=== PATIENT | female | born 1945 | race Caucasian/White ===

== ENCOUNTER 2019-04-28 09:54 | Day surgery (SDC) | payer MEDICARE, OTHER ==
[~2019-04-28 09:54] MED LIST: Lactated Ringers 1,000 ML IV SCH
[2019-04-28] MEDS ORDERED: DIPRIVAN 200 MG/20 ML IV ONE ×3 (12:00→12:54)
[2019-04-28] MEDS ORDERED: Lactated Ringers 1,000 ML IV ONE (12:34)
[2019-04-28 13:48] VITALS: PULSE 60
[2019-04-28 14:07] VITALS: BP 142/58; O2SAT 96
--- NOTE | 2019-04-29 09:09 | OP ---
SURGERY DATE: 04/28/19 SURGERY TIME: 1204 PREOPERATIVE DIAGNOSIS: 1. SURVEILLANCE, HISTORY OF POLYPS. POSTOPERATIVE DIAGNOSIS: 1. COLORECTAL POLYPS. 2. TORTUOUS COLON. 3. INTERNAL HEMORRHOID (MODERATE SIZE LEFT POSTERIOR) AND MINIMAL EXTERNAL HEMORRHOIDAL DISEASE. PROCEDURE: 1. Colonoscopy with hot forceps polypectomy X 2. SURGEON: Dr. Robyn Harrison. ANESTHESIA: MAC. ESTIMATED BLOOD LOSS: Minimal. SPECIMENS: 1. Sigmoid polyp. 2. Rectal polyp. COMPLICATIONS: None. PROCEDURE DETAILS: This is a 73 y/o female who presents for colonoscopy. She has a history of polyps in the past. Risks, benefits, and alternatives discussed with the patient in detail. H&P consent reviewed with her. Confirmed. She was then brought back to the endoscopy suite. Laid in the left lateral decubitus position. Complete time-out performed. First, a rectal exam was done. The colonoscope was then inserted. Gently advanced to the level of the cecum. The colon is quite tortuous as we have known from her prior procedure as well. We were able to navigate this very gently without any issue with some gentle abdominal pressure. With gentle abdominal pressure, we were able to advance the scope all the way to the level of the cecum. The ileocecal valve and appendiceal orifice were visualized. These were normal and then the scope was carefully withdrawn. The patient did have some thick liquid stool throughout her colon which were irrigated and suctioned. It was patchy. I was able to get a good view and the prep overall was satisfactory for review for polyps. As we withdrew the scope, the ascending, transverse, and descending colon were normal. In the sigmoid colon distally, there was 1 small polyp. This was less than a cm. looks benign. There was another polyp similar, very small, flat, and benign appearing in the rectum. Both were taken with hot forceps in entirety and sent for pathology. Outside of this, I found no other findings in the colon. The patient did have a moderate sized enlarged left posterior hemorrhoid column. The mucosa here was slightly red, looked a little irritated. On rectal exam, you can palpate this. This is soft and consistent with a hemorrhoid and you can visualize this. It looks like hemorrhoid tissue although it is a little more inflamed and she is not having any symptoms, but this does look like an internal hemorrhoid. She has very minimal external hemorrhoidal tissue. I then withdrew the scope. I have discussed all the results with the patient personally and her family. The plan tentatively will be to await the final pathology report. Then, I will be doing another rectal exam on her in the office to follow this hemorrhoid in approximately 3-6 months and then we would plan for another colonoscopy based on her final pathology report. I have discussed with her removing this hemorrhoid which she is going to consider and we will discuss at our next appointment.
== END 2019-04-28 14:15 | disposition home or self-care (01) ==
LOC: SDC 09:54
PROVIDERS: ATTEND Surgery
DX: Z09 Encounter for follow-up examination after completed treatment for conditions other than malignant neoplasm (principal); D12.5 Benign neoplasm of sigmoid colon; D12.8 Benign neoplasm of rectum; Z86.010 Personal history of colon polyps; K64.4 Residual hemorrhoidal skin tags; K64.8 Other hemorrhoids
CPT/HCPCS: 88305; 99100; J2704

== ENCOUNTER 2019-06-30 09:51 | Day surgery (SDC) | payer MEDICARE, OTHER ==
[~2019-06-30 09:51] MED LIST changes: +Lactated Ringers 1,000 ML IV ONE; +MEFOXIN 2 GM PREMIX** 2 GM/50 ML ML IV ONE
[2019-06-30] MEDS ORDERED: EXPAREL 266 MG/20 ML VIAL IJ ONE (09:52)
[2019-06-30] MEDS ORDERED: ANUSOL-HC 2.5% CREAM 30 GM TOP ONE (09:52)
[2019-06-30] MEDS ORDERED: DIPRIVAN 200 MG/20 ML IV ONE (11:50)
[2019-06-30] MEDS ORDERED: SUBLIMAZE 100 MCG/2 ML ONE ×2 (11:50→13:25)
[2019-06-30] MEDS ORDERED: Versed 2 MG/2 ML Injection ONE (11:50)
[2019-06-30] MEDS ORDERED: Xylocaine-Mpf 2% 5 Ml Vial ONE (12:22)
[2019-06-30] MEDS ORDERED: PHENYLEPHRINE HCL ONE (12:26)
[2019-06-30] MEDS ORDERED: Ephedrine Sulfate 50 MG/ML ONE (12:45)
[2019-06-30 14:49] VITALS: O2SAT 98
[2019-06-30 15:01] VITALS: BP 100/59; PULSE 72
--- NOTE | 2019-07-16 09:08 | OP ---
PROCEDURE DATE/TIME: 06/30/2019 1220 PREOPERATIVE DIAGNOSIS: Anal canal mass/enlarged hemorrhoid. POSTOPERATIVE DIAGNOSIS: Internal and external hemorrhoids. PROCEDURE: Rectal exam under anesthesia with excision of internal and external hemorrhoidal columns posteriorly x2. PROCEDURE PERFORMED BY: Robyn Harrison M.D. COMPLICATIONS: None. ESTIMATED BLOOD LOSS: Minimal. ANESTHESIA: General. SPECIMEN: Internal and external hemorrhoidal columns (posterior). HISTORY: This is a patient who I have known for quite some time who I have been doing colonoscopies for, who has a history of polyps and also I noticed on her last colonoscopy an enlarged anal canal mass that looked like a hemorrhoid however the mucosa looked a little more red and suspicious at that time although it definitely looked like it could still be hemorrhoid tissue. The patient and I discussed the risks, benefits and alternatives regarding excising hemorrhoids and this lesion. She understands all of the risks, benefits and alternatives and she would like to proceed. She was seen in the preoperative area. H&P and consent reviewed with her and confirmed. DESCRIPTION OF PROCEDURE: She was then brought to the operative suite. Anesthesia induced. She was then prepped and draped in lithotomy position with all bony prominences padded. Complete time out was performed. I first did a rectal exam anteriorly. The patient was normal. Posteriorly the patient has two internal and external hemorrhoidal columns. One of them has much more significant internal hemorrhoidal component this is slightly towards the patient's right at the level of approximately 7:00 to 8:00 and then she had another enlarged column posteriorly close to approximately 5:00 to 5:30 on her left. The large internal hemorrhoid on my exam was closely examined using the [place] anal retractor and this does appear to be to be a hemorrhoid to me. It just looks to be somewhat inflamed although the mucosa looked less inflamed than on our colonoscopy and it does have a small external component with it. I then made a small incision in the anal skin to allow freeing up of the external hemorrhoid with taking only a miniscule amount of mucosa needed over top of this external hemorrhoid. I then placed a clamp to include the entire hemorrhoidal column. I then placed a clamp to include the entire hemorrhoidal column, resected this and then sutured with 2-0 chromic in an over and under fashion to completely excise and ligate the hemorrhoid tissue and we sent this together with her additional hemorrhoids to pathology. This site looked hemostatic. After running our internal aspect of the suture, I did use a 3-0 chromic to suture the more distal mucosa over the external component. Everything looked hemostatic, this looked excellent. I was very happy with the excision. We then turned our attention to the second enlarged hemorrhoid, this had a small internal component and a larger external component. This is resected in the same fashion making a small incision in the mucosa and then only removing a small amount of mucosa necessary to fully remove the hemorrhoid. We dissected the hemorrhoid free from its base, clamped the proximal aspect to include the entire internal hemorrhoid aspect, excised this and then sutured this with 3-0 chromic over and under and then a 4-0 chromic at the very external most aspect. Sites also hemostatic. Hemorrhoids sent together to pathology. Wounds looked excellent. I do not see any other suspicious masses or lesions on rectal exam. The patient will follow up with me as an outpatient for her final pathology report and to check her wounds.
== END 2019-06-30 14:50 | disposition home or self-care (01) ==
LOC: SDC 09:51
PROVIDERS: ATTEND Surgery
DX: K64.4 Residual hemorrhoidal skin tags (principal); K64.8 Other hemorrhoids; K62.89 Other specified diseases of anus and rectum
CPT/HCPCS: 88304; 99100; J0694; J2250; J2370; J2704; J3010; A9270-GY

== ENCOUNTER 2022-01-24 19:56 | Emergency (ER) | payer MEDICARE ==
[2022-01-24] MEDS ORDERED: XYLOCAINE 2% HCL 20 ML MDV IJ ONE (20:08)
[2022-01-24] MEDS ORDERED: XYLOCAINE 2% HCL 20 ML MDV ONE (20:17)
[2022-01-24 21:20] VITALS: O2SAT 98
[2022-01-24] MEDS ORDERED: Adacel Vial IM ONE ×2 (21:26→21:28)
[2022-01-24] MEDS ORDERED: KEFLEX 500 MG ONE (21:26)
[2022-01-24] MEDS ORDERED: BACIGUENT PACKET ONE (21:26)
[2022-01-24] MEDS ORDERED: KEFLEX 500 MG PO ONE (21:28)
[2022-01-24] MEDS ORDERED: BACIGUENT PACKET TP ONE (21:29)
--- NOTE | 2022-01-24 21:33 | ERPHSYRPT ---
- History of Present Illness Time Seen by Provider: 01/24/22 20:20 Source: patient Exam Limitations: no limitations Patient Subjective Stated Complaint: fell and scraped hand Triage Nursing Assessment: pt was helping her daughter wallpaper, they were both on a step stool ladder on the bottom step. Daughter lost her balance and fell into pt, knocking her off her stool. Pt fell onto her daughter and scraped her left hand on a cabinet in the room. Pt's left hand has a scrape/laceration that is jagged and approx 5cm L x 0.3cm W x 0.1cm D. Small amount of blood noted. Pt's daughter had it wrapped tightly in an Shaan bandage when she arrived here, fingers were blue. Fingers became pink as soon as Shaan wrapped was removed, good radial pulse present. Laceration cleansed with NS and hibiclens, bleeding stopped. Physician History: Patient is a 76-year-old female presents to emergency department for evaluation of laceration to the dorsal aspect of the left hand. Patient was assisting her daughter in her home. Patient's daughter was standing on a ladder lost her balance fell towards our patient causing her patient to fall and lacerated the dorsal aspect of her left hand. Injury occurred just prior to arrival. Laceration measures 5 cm x 0.3 cm x 0.1 cm. No other injuries reported. No BHT or LOC. No neck pain. Cervical spine cleared clinically. The fall was not associated with any sort of neuro or cardiovascular symptomology. No chest pain or shortness of breath. No nausea vomiting or diaphoresis. No numbness tingling or weakness. Upon arrival patient's left hand was wrapped. The fingers were cyanotic. No active bleeding. Upon removal of dressing fingers reperfused. Cap refill less than 2 seconds. Radial pulse palpable. Extensor tendon left hand visible. The tendon function appears to be intact. Range of motion appears to be within normal limit but somewhat guarded due to pain. Occurred: just prior to arrival Method of Injury: fell Quality: constant Severity of Pain-Max: moderate Severity of Pain-Current: mild Extremities Pain Location: hand: left Modifying Factors: Improves With: movement Associated Symptoms: none Allergies/Adverse Reactions: No Known Drug Allergies Allergy (Verified 01/24/22 20:26) Home Medications: Amino Acids/Mv,Fe,Other Min [Ocuvite Extra Tablet] 1 each PO DAILY 12/10/15 [History] Calcium 1 tab PO BID 12/10/15 [History] Multivitamin [Multivitamins] 1 each PO DAILY 12/10/15 [History] Ergocalciferol (Vitamin D2) [Vitamin D] 400 unit PO DAILY 04/11/19 [History] Vitamin B Complex [B Complex] 1 each PO DAILY 04/11/19 [History] Hx Tetanus, Diphtheria Vaccination/Date Given: No Hx Influenza Vaccination/Date Given: Yes Hx Pneumococcal Vaccination/Date Given: Yes Immunizations Up to Date: No Travel Risk - International Travel Have you traveled outside of the country in past 3 weeks: No - Coronavirus Screening Are you exhibiting any of the following symptoms?: No Close contact with a COVID-19 positive Pt in past 14-21 Days: No - Vaccine Status Have you recieved a Covid-19 vaccination: Yes [employer]: [employer] - Vaccination Dates Date of 2cond Vaccination (if applicable): 10/22/2020 - Review of Systems Constitutional: No Symptoms, No Fever, No Chills Eyes: No Symptoms Ears, Nose, & Throat: No Symptoms Respiratory: No Symptoms, No Cough, No Dyspnea Cardiac: No Symptoms, No Chest Pain, No Edema, No Syncope Abdominal/Gastrointestinal: No Symptoms, No Abdominal Pain, No Nausea, No Vo miting, No Diarrhea Genitourinary Symptoms: No Symptoms, No Dysuria Musculoskeletal: No Symptoms, No Back Pain, No Neck Pain Skin: No Symptoms, No Rash Neurological: No Symptoms, No Dizziness, No Focal Weakness, No Sensory Changes Psychological: No Symptoms Endocrine: No Symptoms Hematologic/Lymphatic: No Symptoms Immunological/Allergic: No Symptoms All Other Systems: Reviewed and Negative - Past Medical History Pertinent Past Medical History: Yes Neurological History: No Pertinent History ENT History: Macular Degeneration Cardiac History: No Pertinent History Respiratory History: No Pertinent History Endocrine Medical History: No Pertinent History Musculoskeletal History: No Pertinent History GI Medical History: GERD History: No Pertinent History Psycho-Social History: No Pertinent History Female Reproductive Disorders: No Pertinent History - Past Surgical History Past Surgical History: Yes Neuro Surgical History: No Pertinent History Cardiac: No Pertinent History Respiratory: No Pertinent History Gastrointestinal: No Pertinent History Genitourinary: No Pertinent History Musculoskeletal: No Pertinent History Female Surgical History: Other Other Surgical History: external hemorrhoidectomy and ectopic - Social History Smoking Status: Never smoker Exposure to second hand smoke: No Drug Use: none Patient Lives Alone: No - Nursing Vital Signs Nursing Vital Signs: Initial Vital Signs Temperature 98.4 F 01/24/22 20:12 Pulse Rate 72 01/24/22 20:12 Respiratory Rate 16 01/24/22 20:12 Blood Pressure 123/74 01/24/22 20:12 O2 Sat by Pulse Oximetry 99 01/24/22 20:12 Pain Scale Pain Intensity 0 - Physical Exam General Appearance: no apparent distress, alert Eyes, Ears, Nose, Throat Exam: moist mucous membranes Neck Exam: non-tender, supple Cardiovascular/Respiratory Exam: chest non-tender, normal breath sounds, regular rate/rhythm, no respiratory distress Abdominal Exam: non-tender, No guarding Back Exam: normal inspection, No vertebral tenderness Shoulder Exam: normal inspection, non-tender, no evidence of injury, normal ROM Elbow/Forearm Exam: normal inspection, non-tender, no evidence of injury, normal ROM Wrist Exam: normal inspection, non-tender, no evidence of injury, normal ROM Hand Exam: laceration (Laceration dorsal aspect left hand with exposed tendon. Tendon function intact. Extremity neurovascular intact distally. Compartments are soft. Cap refill less than 2 seconds.) Neuro/Tendon Exam: normal sensation, normal motor functions Mental Status Exam: alert, oriented x 3, cooperative Skin Exam: normal color, warm, dry SpO2 Interpretation: normal SpO2: 98 O2 Delivery: Room Air Procedures - Laceration/Wound Repair Hand Time of Procedure: 21:36 Wound Location: Left Wound Length (cm): 5 Wound's Depth, Shape: superficial Wound Explored: clean Irrigated: Yes Hibiclens Prep: Yes Anesthesia: 2% Lidocaine Volume Anesthetic (ccs): 2 Wound Debrided: No debridement indicated Suture Size/Type: 5-0 Number of Sutures: 8 Layer Closure?: No Sterile Dressing Applied?: Yes Splint Applied?: No Sling Applied?: No Progress: Patient reassessed post procedure. Patient neurovascular intact post procedure. Tendon function intact. Radial pulse palpable. Cap refill less than 2 seconds. Sensation intact. Sterile dressing applied including Adaptic. Tetanus was updated. Patient received a dose of Keflex in our ED. A prescription for the same was forwarded to patient's pharmacy. Referral to hand surgeon was provided. Patient agrees to follow-up with hand surgeon within 48 hours for evaluation. at bedside. They voiced no other complaints or concerns at this time. Will discharge home. Portions of this note were created with voice recognition technology. There may be grammatical, spelling, punctuation or sound alike errors 01/24/22 21:37 - Course Nursing assessment & vital signs reviewed: Yes - Radiology Exams Hand X-ray Interpretation: Interpreted by me (X-ray left hand negative for fracture dislocation.) Ordered Tests: Active Orders 24 hr Category Date Time Status HAND (MINIMUM 3 VIEWS) Stat Exams 01/24/22 20:34 Taken Medication Summary Discontinued Medications Generic Name Dose Route Start Last Admin Trade Name Sanjana PRN Reason Stop Dose Admin Lidocaine HCl 5 ml 01/24/22 20:08 01/24/22 20:23 Lidocaine Hcl 2% 20 Ml Mdv IJ 01/24/22 20:09 5 ml STAT ONE Administration Lidocaine HCl Confirm 01/24/22 20:17 Lidocaine Hcl 2% 20 Ml Mdv Administered 01/24/22 20:18 Dose 5 ml .ROUTE .STK-MED ONE - Progress Progress: improved Progress Note: Patient reassessed. She feels well. Hand neurovascular intact post procedure. Patient received a dose of Keflex in our ED. Tetanus updated. 8 simple interrupted sutures using 5-0 nylon were used to close wound. No intraprocedural or postprocedural complications. X-ray negative for fracture. Consultation to hand surgeon obtained. Patient agrees to follow-up with hand surgeon within 48 hours for evaluation. Involved left wrist/hand placed in a wrist cock-up splint. Extremity placed in a left upper extremity sling. Portions of this note were created with voice recognition technology. There may be grammatical, spelling, punctuation or sound alike errors 01/24/22 21:38 Counseled pt/family regarding: diagnosis, need for follow-up, rad results - Departure Departure Disposition: Home Clinical Impression: Fall, Laceration Condition: Stable Critical Care Time: No Referrals: JOHANNA TUCKER MD [Primary Care Provider] - Follow up/PCP as directed Additional Instructions: Discharge/Care Plan MAGEN BENAVIDES PEARL was seen on 01/24/22 in the Emergency Room. The patient was counseled regarding Diagnosis,Lab results, Imaging studies, need for follow up and when to return to the Emergency Room. Prescriptions given: Discharge Note I have spoken with the patient and/or caregivers. I have explained the patient's condition, diagnosis and treatment plan based on the information available to me at this time. I have answered the patient's and/or caregiver's questions and addressed any concerns. The patient and/or caregivers have as good understanding of the patient's diagnosis, condition and treatment plan as can be expected at this point. The vital signs have been stable. The patient's condition is stable and appropriate for discharge from the emergency department. The patient will pursue further outpatient evaluation with the primary care physician or other designated or consulting physician as outlined in the discharge instructions. The patient and/or caregivers are agreeable to this plan of care and follow-up instructions have been explained in detail. The patient and/or caregivers have received these instruction. The patient/and or caregivers are aware that any significant change in condition or worsening of symptoms should prompt an immediate return to this or the closest emergency department or call 911. Prescriptions: Cephalexin Mh 500 mg [Keflex 500 mg] 500 mg PO TID 7 Days #21 cap
[2022-01-24] MEDS ORDERED: NORCO 5/325 MG PO ONE (21:56)
[2022-01-24] MEDS ORDERED: NORCO 5/325 MG ONE (21:57)
[2022-01-24 22:06] VITALS: BP 131/75; PULSE 84
--- NOTE | 2022-01-25 09:01 | XRAY ---
Indication: Pain following fall. Fracture. Comparison: None 3 view left hand demonstrates osteopenia, mild/moderate degenerative changes all IP joints greatest 2nd DIP, mild/moderate degenerative changes 1st metacarpal multangular scaphoid articulation, and old nonunited ulnar styloid fracture. No other bony, articular, or soft tissue abnormalities.
== END 2022-01-24 22:13 | disposition home or self-care (01) ==
LOC: ED 19:56
DX: S61.412A Laceration without foreign body of left hand, initial encounter (principal); W03.XXXA Other fall on same level due to collision with another person, initial encounter; Z79.899 Other long term (current) drug therapy
CPT/HCPCS: 12002; 73130; 90471; 90715; 96372; 99284; A4570; A9270-GY